=== PATIENT | male | born 1980 | race Caucasian/White ===

== ENCOUNTER 2019-10-12 17:30 | Emergency (ER) | payer SELFPAY ==
--- NOTE | 2019-10-12 19:30 | ER ---
Nurse's Notes [facility] Name: Leno Galindo Age: 38 yrs Sex: Male : 1980 Arrival Date: 10/12/2019 Time: 17:33 Bed 11 Private MD: Diagnosis: Zoster [herpes zoster];Acute upper respiratory infection, unspecified Presentation: 10/12 18:21 Presenting complaint: Patient states: Cough x 1 week, congestion few days. Denies ca1 fever, vomiting, diarrhea. reports nausea. Rash on R lateral chest area, L upper back. Transition of care: patient was not received from another setting of care. Onset of symptoms was October 12, 2019. Risk Assessment: Do you want to hurt yourself or someone else? Patient reports no desire to harm self or others. Initial Sepsis Screen: Does the patient meet any 2 criteria? No. Patient's initial sepsis screen is negative. Does the patient have a suspected source of infection? No. Patient's initial sepsis screen is negative. Care prior to arrival: None. 18:21 Method Of Arrival: Ambulatory ca1 18:21 Acuity: SHANTA 4 ca1 Historical: - Allergies: 18:26 No Known Allergies; ca1 - Home Meds: 18:26 None [Active]; ca1 - PMHx: 18:26 Hypertension; ca1 - PSHx: 18:26 Shoulder Surgery; ca1 - Immunization history:: Adult Immunizations not up to date, Last tetanus immunization: up to date Flu vaccine is not up to date. - Coronavirus screen:: The patient has NOT traveled to [place], [place], or [place] in the past 14 days. The patient has NOT had contact with known/suspected case of Coronavirus?. - Social history:: Smoking status: Patient reports the use of cigarette tobacco products, smokes one-half pack cigarettes per day. - Ebola Screening: : Patient negative for fever greater than or equal to 101.5 degrees Fahrenheit, and additional compatible Ebola Virus Disease symptoms Patient denies exposure to infectious person Patient denies travel to an Ebola-affected area in the 21 days before illness onset No symptoms or risks identified at this time. Assessment: 19:38 General: Appears in no apparent distress. Pain: Complains of pain in back of left arm bb3 Pain currently is 6 out of 10 on a pain scale. Quality of pain is described as aching. Neuro: No deficits noted. Reports Denies. Derm: No deficits noted. Musculoskeletal: No deficits noted. Vital Signs: 18:26 BP 143 / 96; Pulse 86; Resp 17 S; Temp 97.6(TE); Pulse Ox 100% on R/A; Weight 99.79 kg ca1 (R); Height 6 ft. 4 in. (193.04 cm) (R); 19:39 BP 146 / 97; Pulse 86; Resp 18; Temp 97.9; Pulse Ox 99% ; Pain 6/10; bb3 20:14 BP 146 / 97; Pulse 86; Resp 19; Temp 97.9; Pulse Ox 99% ; bb3 18:26 Body Mass Index 26.78 (99.79 kg, 193.04 cm) ca1 ED Course: 17:33 Patient arrived in ED. ag5 18:25 Triage completed. ca1 18:26 Arm band placed on right wrist. ca1 19:17 Andrew Saucedo MD is Attending Physician. tw4 Administered Medications: 20:00 Drug: TORadol 60 mg Route: IM; Site: right deltoid; bb3 20:14 Follow up: BP 146 / 97; Pulse 86 bpm; Resp 19 bpm; Temp 97.9; Pulse Ox 99% bb3 20:05 Drug: Valtrex 1000 mg Route: PO; bb3 Outcome: 19:29 Discharge ordered by . tw4 20:18 Patient left the ED. bb3 Signatures: Andrew Saucedo MD MD tw4 Catherine Hyman, RN RN ca1 Roland Rick ag5 Merlyn Rogers bb3
--- NOTE | 2019-10-12 19:30 | EDPHYS ---
Physician Documentation [facility] Name: Leno Galindo Age: 38 yrs Sex: Male : 1980 Arrival Date: 10/12/2019 Time: 17:33 Bed 11 Private MD: ED Physician Andrew Saucedo HPI: 10/12 19:44 This 38 yrs old Male presents to ER via Ambulatory with complaints of Flu tw4 Symptoms, Rash. 19:44 The patient's rash thought to be caused by an unknown cause. The rash is located on the tw4 posterior aspect of right shoulder. The rash can be described as vesicular. Onset: The symptoms/episode began/occurred 5 day(s) ago. Associated signs and symptoms: Pertinent positives: Pain. Severity of symptoms: At their worst the symptoms were moderate in the emergency department the symptoms are unchanged. The patient has not experienced similar symptoms in the past. Historical: - Allergies: 18:26 No Known Allergies; ca1 - Home Meds: 18:26 None [Active]; ca1 - PMHx: 18:26 Hypertension; ca1 - PSHx: 18:26 Shoulder Surgery; ca1 - Immunization history:: Adult Immunizations not up to date, Last tetanus immunization: up to date Flu vaccine is not up to date. - Coronavirus screen:: The patient has NOT traveled to [place], [place], or [place] in the past 14 days. The patient has NOT had contact with known/suspected case of Coronavirus?. - Social history:: Smoking status: Patient reports the use of cigarette tobacco products, smokes one-half pack cigarettes per day. - Ebola Screening: : Patient negative for fever greater than or equal to 101.5 degrees Fahrenheit, and additional compatible Ebola Virus Disease symptoms Patient denies exposure to infectious person Patient denies travel to an Ebola-affected area in the 21 days before illness onset No symptoms or risks identified at this time. ROS: 19:44 Constitutional: Negative for fever, chills, and weight loss, Eyes: Negative for injury, tw4 pain, redness, and discharge, Cardiovascular: Negative for chest pain, palpitations, and edema, Respiratory: Negative for shortness of breath, cough, wheezing, and pleuritic chest pain, Abdomen/GI: Negative for abdominal pain, nausea, vomiting, diarrhea, and constipation, Back: Negative for injury and pain, MS/Extremity: Negative for injury and deformity, Neuro: Negative for headache, weakness, numbness, tingling, and seizure. 19:44 Skin: Positive for rash, Negative for abrasions, abscesses, avulsion, burn, cellulitis, diaphoresis, discoloration, ecchymosis, erythema, hematoma, jaundice, laceration(s), lesions, pallor, puncture. Exam: 19:44 Constitutional: This is a well developed, well nourished patient who is awake, alert, tw4 and in no acute distress. Head/Face: Normocephalic, atraumatic. 19:44 Chest/axilla: Normal chest wall appearance and motion. Nontender with no deformity. No lesions are appreciated. Cardiovascular: Regular rate and rhythm with a normal S1 and S2. No gallops, murmurs, or rubs. Normal PMI, no JVD. No pulse deficits. Respiratory: Lungs have equal breath sounds bilaterally, clear to auscultation and percussion. No rales, rhonchi or wheezes noted. No increased work of breathing, no retractions or nasal flaring. Abdomen/GI: Soft, non-tender, with normal bowel sounds. No distension or tympany. No guarding or rebound. No evidence of tenderness throughout. Back: No spinal tenderness. No costovertebral tenderness. Full range of motion. 19:44 Skin: Appearance: rash a mild rash is noted, zoster, on the posterior aspect of right shoulder. Vital Signs: 18:26 BP 143 / 96; Pulse 86; Resp 17 S; Temp 97.6(TE); Pulse Ox 100% on R/A; Weight 99.79 kg ca1 (R); Height 6 ft. 4 in. (193.04 cm) (R); 19:39 BP 146 / 97; Pulse 86; Resp 18; Temp 97.9; Pulse Ox 99% ; Pain 6/10; bb3 20:14 BP 146 / 97; Pulse 86; Resp 19; Temp 97.9; Pulse Ox 99% ; bb3 18:26 Body Mass Index 26.78 (99.79 kg, 193.04 cm) ca1 MDM: 19:17 Patient medically screened. tw4 19:46 Differential diagnosis: impetigo, varicella. Data reviewed: vital signs, nurses notes. tw4 Data reviewed: lab test result(s), Flu:. Data interpreted: Pulse oximetry: Interpretation: normal. Counseling: I had a detailed discussion with the patient and/or guardian regarding: the historical points, exam findings, and any diagnostic results supporting the discharge/admit diagnosis. Medication response: Toradol partially relieved the patient's pain. Response to treatment: and as a result, I will discharge patient. Special discussion: I discussed with the patient/guardian in detail that at this point there is no indication for admission to the hospital. It is understood, however, that if the symptoms persist or worsen the patient needs to return immediately for re-evaluation. 10/12 18:28 Order name: Flu ca1 10/12 18:28 Order name: Strep ca1 10/12 19:05 Order name: Throat Culture EDMS Administered Medications: 20:00 Drug: TORadol 60 mg Route: IM; Site: right deltoid; bb3 20:14 Follow up: BP 146 / 97; Pulse 86 bpm; Resp 19 bpm; Temp 97.9; Pulse Ox 99% bb3 20:05 Drug: Valtrex 1000 mg Route: PO; bb3 Disposition: 10/12/19 19:29 Discharged to Home. Impression: Zoster [herpes zoster], Acute upper respiratory infection, unspecified. - Condition is Stable. - Discharge Instructions: Upper Respiratory Infection, Pediatric, Viral Respiratory Infection, Shingles, [id number]. - Prescriptions for Ibuprofen 800 mg Oral Tablet - take 1 tablet by ORAL route every 8 hours As needed take with food; 30 tablet. Tylenol- Codeine #3 300-30 mg Oral Tablet - take 2 tablet by ORAL route every 6 hours As needed; 30 tablet. Valtrex 1 g Oral Tablet - take 1 tablet by ORAL route every 8 hours for 7 days; 21 tablet. Tessalon Perles 100 mg Oral Capsule - take 1 capsule by ORAL route every 8 hours As needed; 15 capsule. - Medication Reconciliation Form, Thank You Letter, Antibiotic Education, Prescription Opioid Use form. - Follow up: Private Physician; When: Upon discharge from the Emergency Department; Reason: Recheck today's complaints, Continuance of care, Re-evaluation by your physician. - Problem is new. - Symptoms have improved. Signatures: Dispatcher [employer] EDMS Andrew Saucedo MD MD tw4 Catherine Hyman RN RN ca1 Merlyn Rogers bb3 Corrections: (The following items were deleted from the chart) 20:18 19:29 10/12/2019 19:29 Discharged to Home. Impression: Zoster [herpes zoster]; Acute bb3 upper respiratory infection, unspecified. Condition is Stable. Forms are Medication Reconciliation Form, Thank You Letter, Antibiotic Education, Prescription Opioid Use. Follow up: Private Physician; When: Upon discharge from the Emergency Department; Reason: Recheck today's complaints, Continuance of care, Re-evaluation by your physician. Problem is new. Symptoms have improved. tw4
[2019-10-12] MEDS ORDERED: VALACYCLOVIR 500 MG TAB ONE (19:56)
[2019-10-12] MEDS ORDERED: KETOROLAC 30 MG/ML INJ ONE (19:56)
[2019-10-12 20:30] VITALS: BP 146/97; TEMP 97.9; O2SAT 99
== END 2019-10-12 20:18 | disposition home or self-care (01) ==
LOC: ER 17:30
DX: B02.9 Zoster without complications (principal); J06.9 Acute upper respiratory infection, unspecified
CPT/HCPCS: 87070; 87081; 87804; 96372; 99283

== ENCOUNTER 2020-02-09 14:35 | Emergency (ER) | payer OTHER, SELFPAY ==
--- OUTSIDE RECORDS SUMMARY | 2020-02-09 16:04 | XMS REPORT | Summary of Care ---
:1980 Author Organization [facility] Address [address] [place] [address] Care Team Providers Name Role Phone Pcp, Patient Does Not Have A Primary Care Provider +[id number] 0-0000 Reason for Referral Radiology Services (STAT) Status Reason Specialty Diagnoses / Referred By Referred To Procedures Contact Contact Closed Diagnostic Diagnoses Right testicular pain Ermelinda Ramsay Radiology Procedures US SCROTUM AND CONTENTS [address] [place] [address] Reason for Visit Radiology Services (STAT) Status Reason Specialty Diagnoses / Referred By Referred To Procedures Contact Contact Closed Diagnostic Diagnoses Right testicular pain Ermelinda Ramsay Radiology Procedures US SCROTUM AND CONTENTS [address] [place] [address] Encounter Details Date Type Department Care Team Description 12/30/2019 Hospital Encounter Critical access hospital Radiolog y Arrived [facility] [address] [facility] [address] [place] [address] [place] [phone] Allergies Not on Filedocumented as of this encounter (statuses as of 12/31/2019) Medications Not on filedocumented as of this encounter (statuses as of 12/31/2019) Active Problems Not on filedocumented as of this encounter (statuses as of 12/31/2019) Social History Tobacco Use Types Packs/Day Years Used Date Never Assessed Sex Assigned at Date Recorded Not on file Job Start Date Occupation Industry Not on file Not on file Not on file Travel History Travel Start Travel End No recent travel history available. documented as of this encounter Last Filed Vital Signs Not on filedocumented in this encounter Plan of Treatment Health Maintenance Due Date Last Done Comments VARICELLA VACCINES (1 of 2 - 1983 2-dose childhood series) DTaP,Tdap,and Td Vaccines (1 - 1993 Tdap) INFLUENZA VACCINE (#1) 2019 PNEUMOCOCCAL 0-64 YEARS COMBINED Aged Out No longer eligible based on SERIES patient's age to complete this topic documented as of this encounter Procedures Procedure Name Priority Date/Time Associated Diagnosis Comme nts US SCROTUM AND STAT 12/30/2019 1:30 PM Right testicular Re sults for this CONTENTS CDT pain procedure are i n the results section. documented in this encounter Results US SCROTUM AND CONTENTS (12/30/2019 1:30 PM CDT) Specimen Narrative Performed At HISTORY: Right testicular pain for one w [place]. PACS/VR/DOSE TECHNIQUE: Entire scrotum is evaluated in multiple maria luisa duncan without and with color Doppler imaging. FINDINGS: Both testes show homogeneous e cho structure. Right testicle is 4.5 x 2.2 x 3.0 cm (15.8 ml ). Left testicle is 4.1 x 2.4 x 3.1 cm in size (16.7 ml ). Small bilateral scrotal hydr ocele and bilateral scrotal varicocele noted, slightly larger on the left side. Va scular flow as well as Doppler tracings appear normal over each testis. 7. 5 x 8.7 mm cyst noted in the head of the right epididymis and several small epididymal cysts noted in the head of the left epididymis , largest is 2.7 mm. Small calcifications are seen in the left test is and there are one or 2 small calcifications in the right testis. CONCLUSIONS: 1. No acute findings and scrotal ultraso und study. 2. Small cysts in the head of the epididymis, larger s ize of 7.5 x 8.7 mm in the right epididymis. 3. Small bilateral testicular microlithiasis without a ny other associated sonographic abnormalities. Procedure Note [facility], Radiant Results Inft User - 2019 1:34 PM CDT HISTORY: Right testicular pain for one week. TECHNIQUE: Entire scrotum is evaluated i n multiple planes without and with color Doppler imaging. FINDINGS: Both testes show homogeneous e cho structure. Right testicle is 4.5 x 2.2 x 3.0 cm (15.8 ml ). Left test icle is 4.1 x 2.4 x 3.1 cm in size (16.7 ml ). Small bilateral scrotal hydr ocele and bilateral scrotal varicocele noted, slightly larger on the left side. Vascular flow as well as Doppler tracings appear normal over e ach testis. 7.5 x 8.7 mm cyst noted in the head of the right epididymis and several small epididymal cysts noted in the head of the left epididymis , largest is 2.7 mm. Small calcifications are seen in the left test is and there are one or 2 small calcifications in the right testis. CONCLUSIONS: 1. No acute findings and scrotal ultraso und study. 2. Small cysts in the head of the epidid ymis, larger size of 7.5 x 8.7 mm in the right epididymis. 3. Small bilateral testicular microlithi asis without any other associated sonographic abnormalities. Performing Organization Address City/State/Zipcode Phone Number PACS/VR/DOSE documented in this encounter Visit Diagnoses Diagnosis Right testicular pain Unspecified disorder of male genital org ans documented in this encounter documented as of this encounter
--- OUTSIDE RECORDS SUMMARY | 2020-02-09 16:04 | XMS REPORT | Summary of Care ---
:1980 Author Organization [facility] - Health Address [address] [place] [address] Care Team Providers Name Role Phone Pcp, Patient Does Not Have A Primary Care Provider +[id number] 0-0000 Encounter Details Date Type Department Care Team Description 12/30/2019 Orders Only [facility] Doctor Unassigned, No [address] [facility] [place] [address] [address] [place] [address] Allergies Not on Filedocumented as of this encounter (statuses as of 12/30/2019) Medications Not on filedocumented as of this encounter (statuses as of 12/30/2019) Active Problems Not on filedocumented as of this encounter (statuses as of 12/30/2019) Social History Tobacco Use Types Packs/Day Years Used Date Never Assessed Sex Assigned at Date Recorded Not on file Job Start Date Occupation Industry Not on file Not on file Not on file Travel History Travel Start Travel End No recent travel history available. documented as of this encounter Last Filed Vital Signs Not on filedocumented in this encounter Plan of Treatment Date Type Specialty Care Team Description 12/30/2019 Hospital Encounter Radiology Radiology Arrived [address] [place] [address] Health Maintenance Due Date Last Done Comments VARICELLA VACCINES (1 of 2 - 1983 2-dose childhood series) DTaP,Tdap,and Td Vaccines ( - 1993 Tdap) INFLUENZA VACCINE (#1) 2019 PNEUMOCOCCAL 0-64 YEARS COMBINED Aged Out No longer eligible based on SERIES patient's age to complete this topic documented as of this encounter Procedures Procedure Name Priority Date/Time Associated Diagnosis Comme nts CONSENT/REFUSAL FOR Routine 12/30/2019 1:04 PM DIAGNOSIS AND TREATMENT CDT ASSIGNMENT OF BENEFITS Routine 12/30/2019 1:04 PM CDT documented in this encounter Results Not on filedocumented in this encounter Insurance Payer Benefit Plan / Group Subscriber ID Effective Dates Phone Address Type BIN STEWARD II [id number] 2019-Present H MO/PPO/POS documented as of this encounter
--- OUTSIDE RECORDS SUMMARY | 2020-02-09 16:04 | XMS REPORT ---
:1980 Author Organization [facility] t Address [address] [place] [address] [address] [place] [address] Care Team Providers Name Role Phone Radiology Attending Clinician Unavailable Doctor Unassigned, Name Attending Clinician Unavailable Problems This patient has no known problems. Allergies, Adverse Reactions, Alerts This patient has no known allergies or adverse reactions. Medications This patient has no known medications. Procedures This patient has no known procedures. Encounters Start End Encounter Admission Attending Care Care Encounter Source Date/Time Date/Time Type Type Clinicians Facility Department ID 2019-12-30 2019-12-30 [facility] Radiology [facility] [id number] 13:04:00 23:59:00 Encounter [place] [id number] [place] [id number] [place] [phone] [id number] 2019-12-30 2019-12-30 Orders Doctor ANA MARÍA [id number] 00:00:00 00:00:00 Only Unassigned, [facility] [id number] [place] [facility] [phone] [id number] Results This patient has no known results.
[2020-02-09 16:48] VITALS: BP 148/88; TEMP 98.9; O2SAT 98
--- NOTE | 2020-02-14 14:29 | ER ---
Nurse's Notes [facility] Name: Leno Galindo Age: 39 yrs Sex: Male : 1980 Arrival Date: 02/09/2020 Time: 14:40 Bed 10 Private MD: Diagnosis: Bronchitis, not specified as acute or chronic-Covid Symptoms Screen + Presentation: 02/08 14:52 Chief complaint: Patient states: sore throat, cough, congestion, temp of 102 for 2 dm5 days. 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 Coronavirus screen: Proceed with normal triage. Patient reports a cough. Patient denies shortness of breath or difficulty breathing. Patient reports a measured and/or subjective temperature greater than 100.4F. Patient denies travel on a cruise ship or to a country the [facility] currently lists as an affected area. Patient denies contact with known and/or suspected case of COVID-19. Ebola Screen: Patient denies travel to an Ebola-affected area in the 21 days before illness onset. Initial Sepsis Screen: Does the patient meet any 2 criteria? HR > 90 bpm. No. Patient's initial sepsis screen is negative. Risk Assessment: Do you want to hurt yourself or someone else? Patient reports no desire to harm self or others. Onset of symptoms was February 08, 2020. 14:52 Method Of Arrival: Ambulatory dm5 14:52 Acuity: SHANTA 4 dm5 Historical: - Allergies: 14:54 No Known Allergies; dm5 - PMHx: 14:54 Hypertension; dm5 - PSHx: 14:54 Shoulder Surgery; dm5 - Immunization history:: Adult Immunizations up to date. - Social history:: Smoking status: Patient reports the use of cigarette tobacco products, smokes one-half pack cigarettes per day, Patient uses alcohol, only on a social basis. Patient/guardian denies using street drugs. Screenin:50 Abuse screen: Denies threats or abuse. Denies injuries from another. Nutritional hb screening: No deficits noted. Tuberculosis screening: No symptoms or risk factors identified. Fall Risk None identified. Assessment: 15:50 General: Appears in no apparent distress. Behavior is calm, cooperative. Pain: Pain hb currently is 3 out of 10 on a pain scale. Neuro: Level of Consciousness is awake, alert, obeys commands. Cardiovascular: Patient's skin is warm and dry. Respiratory: Airway is patent Respiratory effort is even, unlabored. GI: No signs and/or symptoms were reported involving the gastrointestinal system. : No signs and/or symptoms were reported regarding the genitourinary system. EENT: Reports sore throat, cough. Derm: Skin is pink, warm \T\ dry. Musculoskeletal: No signs and/or symptoms reported regarding the musculoskeletal system. Vital Signs: 14:52 BP 148 / 88; Pulse 118; Resp 18; Temp 98.9; Pulse Ox 98% ; Pain 3/10; dm5 ED Course: 14:40 Patient arrived in ED. mr 14:54 Triage completed. dm5 14:54 Arm band placed on. dm5 15:44 [facility] snw 15:44 Reji Durand MD is Attending Physician. snw 16:18 Valencia Sheehan RN is Primary Nurse. ll1 16:38 Patient has correct armband on for positive identification. hb 16:38 No provider procedures requiring assistance completed. Patient did not have IV access hb during this emergency room visit. Administered Medications: No medications were administered Outcome: 16:20 Discharge ordered by . snw 16:38 Discharged to home ambulatory. hb 16:38 Condition: stable 16:38 Discharge instructions given to patient, Instructed on discharge instructions, follow up and referral plans. Demonstrated understanding of instructions, follow-up care, medications, Prescriptions given X 2. 16:39 Patient left the ED. hb Addendum: 02/14/2020 11:01 Addendum: Other attempted to contact pt regarding negative COVID-19 swab results. Left d m5 voice mail. 16:42 Addendum: Other Pt notified of negative COVID-19 swab results. Pt advised to remain in d m5 isolation until fever free for 3 days without medication or at least 10 days from symptom onset, to continue to monitor symptoms and to return to the ED for worsening symptoms. Pt also advised to follow up with PCP and to contact medical records for a copy of COVID-19 swab results. Signatures: Marielos Thomason RN RN dm Rebekah Hunt FNP-C CLOTHING DESIGNER-Cristina Oksana Herrmann Karen Browne RN RN Valencia Sheehan RN RN ll1 Corrections: (The following items were deleted from the chart) 02/08 14:55 14:54 Arm band placed on Patient placed in an exam room, on a stretcher, dm5 dm5
--- NOTE | 2020-02-14 14:30 | EDPHYS ---
Physician Documentation [facility] Name: Leno Galindo Age: 39 yrs Sex: Male : 1980 Arrival Date: 02/09/2020 Time: 14:40 Bed 10 Private MD: ED Physician Reji Durand HPI: 02/08 16:37 This 39 yrs old Male presents to ER via Ambulatory with complaints of Fever, snw Sore Throat. 16:37 The patient reports fever, that was measured at 102.8 degrees Fahrenheit. Onset: The snw symptoms/episode began/occurred suddenly, 3 day(s) ago, and became persistent. Associated signs and symptoms: Pertinent positives: cough, myalgias, sore throat. Severity of symptoms: At their worst the symptoms were moderate in the emergency department the symptoms are unchanged. It is unknown whether or not the patient has had similar symptoms in the past. The patient has not recently seen a physician. Historical: - Allergies: 14:54 No Known Allergies; dm5 - PMHx: 14:54 Hypertension; dm5 - PSHx: 14:54 Shoulder Surgery; dm5 - Immunization history:: Adult Immunizations up to date. - Social history:: Smoking status: Patient reports the use of cigarette tobacco products, smokes one-half pack cigarettes per day, Patient uses alcohol, only on a social basis. Patient/guardian denies using street drugs. ROS: 16:35 Eyes: Negative for injury, pain, redness, and discharge, Neck: Negative for injury, snw pain, and swelling, Cardiovascular: Negative for chest pain, palpitations, and edema, Abdomen/GI: Negative for abdominal pain, nausea, vomiting, diarrhea, and constipation, Back: Negative for injury and pain, : Negative for injury, bleeding, discharge, and swelling, MS/Extremity: Negative for injury and deformity, Skin: Negative for injury, rash, and discoloration, Neuro: Negative for headache, weakness, numbness, tingling, and seizure, Psych: Negative for depression, anxiety, suicide ideation, homicidal ideation, and hallucinations. 16:35 Constitutional: Positive for body aches, fever, malaise. 16:35 ENT: Positive for sore throat. 16:35 Respiratory: Positive for cough, with no reported sputum, Negative for dyspnea on exertion, sputum production. Exam: 16:35 Head/Face: Normocephalic, atraumatic. Eyes: Pupils equal round and reactive to light, snw extra-ocular motions intact. Lids and lashes normal. Conjunctiva and sclera are non-icteric and not injected. Cornea within normal limits. Periorbital areas with no swelling, redness, or edema. ENT: Nares patent. No nasal discharge, no septal abnormalities noted. Tympanic membranes are normal and external auditory canals are clear. Oropharynx with no redness, swelling, or masses, exudates, or evidence of obstruction, uvula midline. Mucous membranes moist. Neck: Trachea midline, no thyromegaly or masses palpated, and no cervical lymphadenopathy. Supple, full range of motion without nuchal rigidity, or vertebral point tenderness. No Meningismus. Chest/axilla: Normal chest wall appearance and motion. Nontender with no deformity. No lesions are appreciated. Cardiovascular: Tachycardic rate and rhythm with a normal S1 and S2. No gallops, murmurs, or rubs. Normal PMI, no JVD. No pulse deficits. Respiratory: Lungs have equal breath sounds bilaterally, clear to auscultation and percussion. No rales, rhonchi or wheezes noted. No increased work of breathing, no retractions or nasal flaring. Abdomen/GI: Soft, non-tender, with normal bowel sounds. No distension or tympany. No guarding or rebound. No evidence of tenderness throughout. Back: No spinal tenderness. No costovertebral tenderness. Full range of motion. Skin: Warm, dry with normal turgor. Normal color with no rashes, no lesions, and no evidence of cellulitis. MS/ Extremity: Pulses equal, no cyanosis. Neurovascular intact. Full, normal range of motion. Neuro: Awake and alert, GCS 15, oriented to person, place, time, and situation. Cranial nerves II-XII grossly intact. Motor strength 5/5 in all extremities. Sensory grossly intact. Cerebellar exam normal. Normal gait. Psych: Awake, alert, with orientation to person, place and time. Behavior, mood, and affect are within normal limits. 16:35 Constitutional: The patient appears alert, awake. Vital Signs: 14:52 BP 148 / 88; Pulse 118; Resp 18; Temp 98.9; Pulse Ox 98% ; Pain 3/10; dm5 MDM: 15:56 Patient medically screened. snw 16:23 Data reviewed: vital signs, nurses notes. Data interpreted: Pulse oximetry: on room air snw is 98 %. Interpretation: normal. Counseling: I had a detailed discussion with the patient and/or guardian regarding: the historical points, exam findings, and any diagnostic results supporting the discharge/admit diagnosis, the presence of at least one elevated blood pressure reading (>120/80) during this emergency department visit, lab results, the need for outpatient follow up, to return to the emergency department if symptoms worsen or persist or if there are any questions or concerns that arise at home. Response to treatment: There is no appreciated change of the patient's symptoms at this time, the patient's symptoms have mildly improved after treatment. Special discussion: I have referred the patient to see his PCP for further evaluation of high blood pressure. Based on the history and exam findings, there is no indication for further emergent testing or inpatient evaluation. I discussed with the patient/guardian the need to see the primary care provider for further evaluation of the symptoms. 02/08 14:56 Order name: Flu 5 02/08 14:56 Order name: Strep 5 02/08 15:27 Order name: Group A Streptococcus Rapid Sc; Complete Time: 15:52 EDMS 02/08 15:49 Order name: Influenza Screen (A ; Complete Time: 15:52 EDMS 02/08 15:55 Order name: COVID-19: ED patient with URI s/s kdr 02/08 15:55 Order name: Droplet/Contact Precautions; Complete Time: 16:19 snw Administered Medications: No medications were administered Disposition: 17:19 Co-signature as Attending Physician, Reji Durand MD I agree with the assessment and kdr plan of care. Disposition: 02/09/20 16:20 Discharged to Home. Impression: Bronchitis, not specified as acute or chronic - Covid Symptoms Screen +. - Condition is Stable. - Discharge Instructions: Acute Bronchitis, Adult, Fever, Adult, Cough, Adult. - Prescriptions for Zyrtec 10 mg Oral Tablet - take 1 tablet by ORAL route once daily As needed; 20 tablet. Pepcid 20 mg Oral Tablet - take 1 tablet by ORAL route once daily; 20 tablet. - Work release form, Medication Reconciliation Form, Thank You Letter, Antibiotic Education, Prescription Opioid Use form. - Follow up: Emergency Department; When: As needed; Reason: Trouble breathing, Worsening of condition. Follow up: Private Physician; When: 1 week; Reason: Recheck today's complaints, Continuance of care, Re-evaluation by your physician. - Notes: Please avoid Motrin until cleared for CoVid 19, results will be called to you. Please quarantine x 2 weeks. Signatures: Dispatcher [employer] EDMarielos Beckham, RN RN dm5 Reji Durand MD MD [facility] Rebekah Hunt, GROCERY SUPERVISOR-C GROCERY SUPERVISOR-Csnw Karen Browne RN RN hb Corrections: (The following items were deleted from the chart) 16:39 16:20 02/09/2020 16:20 Discharged to Home. Impression: Bronchitis, not specified as hb acute or chronic - Covid Symptoms Screen +. Condition is Stable. Forms are Medication Reconciliation Form, Thank You Letter, Antibiotic Education, Prescription Opioid Use. Follow up: Emergency Department; When: As needed; Reason: Trouble breathing, Worsening of condition. Follow up: Private Physician; When: 1 week; Reason: Recheck today's complaints, Continuance of care, Re-evaluation by your physician. snw
== END 2020-02-09 16:39 | disposition home or self-care (01) ==
LOC: ER 14:35
DX: J40 Bronchitis, not specified as acute or chronic (principal); Z20.828 Contact with and (suspected) exposure to other viral communicable diseases; I10 Essential (primary) hypertension; F17.210 Nicotine dependence, cigarettes, uncomplicated
CPT/HCPCS: 87070; 87081; 87804; 99282

== ENCOUNTER 2022-05-19 15:23 | Emergency (ER) | payer OTHER ==
--- OUTSIDE RECORDS SUMMARY | 2022-05-19 15:27 | XMS REPORT | Continuity of Care Document ---
:1980 Author Organization [facility] t Address [address] [place] [address] Care Team Providers Name Role Phone PCP, PATIENT DOES NOT HAVE A Primary Care Physician UnavailJOVANA Dinero Attending Clinician Unavailable Lab, Adc Fam Pob I Attending Clinician Unavailable Vashti Kruse Attending Clinician Doctor Unassigned, [place] Attending Clinician Unavailable RADIOLOGY Attending Clinician Unavailable Radiology Attending Clinician Unavailable JOVANA HOOKER Admitting Clinician Unavailable KIRK CASTILLO Admitting Clinician Unavailable Payers Payer Name Policy Type Policy Number Effective Date Expiration Date Aman STEWARD II [id number] 2019 00:00:00 Problems This patient has no known problems. Allergies, Adverse Reactions, Alerts Allergy Allergy Status Severity Reaction(s) Onset Inactive Treating Comm ents Source Name Type Date Date Clinician NO KNOWN Drug Active Univers ALLERGIE Class ity of S [facility] Social History Social Habit Start Date Stop Date Quantity Comments Source [facility] to SARS-CoV-2 [facility] Sm[facility] Status Start Date Stop Date Source Unknown if ever [facility] Medications Ordered Filled Start Stop Current Ordering Indication Dosage Frequency Signature Comments Components Source Medication Medication Date Date Medication? Clinician (SIG) Name Name lisinopril Yes TK 1 T PO Un heide 10 mg 7-01 QD ity of tablet 00:00: [address] Procedures Procedure Date / Time Performed Performing Clinician [facility] e US SCROTUM AND 2019-12-30 18:30:12 Requisition, Paper Universit y of [facility] CONSENT/REFUSAL FOR 2019-12-30 18:04:31 Doctor Unassigned, No [facility] DIAGNOSIS AND Name [facility] TREATMENT ASSIGNMENT OF BENEFITS 2019-12-30 18:04:18 Doctor Unassigned, No [facility] Encounters Start End Encounter Admission Attending Care Care Encounter Source Date/Time Date/Time Type Type Clinicians Facility Department ID 2022-02-28 Outpatient R [facility] N[facility]OL[facility] [id number] Univers 14:47:14 JOVANA ity [facility] 2022-03-06 2022-03-06 Outpatient R [facility] [id number] Univers 08:00:00 08:00:00 [id number] ity [facility] 2022-03-06 2022-03-06 Outpatient R MORRO [facility] [id number] Univers 08:00:00 08:00:00 JOVANA ity [facility] 2020-04-21 2020-04-21 Laboratory Lab, Adc Fam Pob I [facility] [id number] Univers 15:44:54 16:04:54 Only Vashti Medley [facility] [id number] ity of [place] [id number] Javi as [place] [id number] [address] Office [address] 2020-04-21 2020-04-21 Outpatient R [facility] [id number] Univers 15:40:00 15:40:00 ity of [facility] 2020-04-21 2020-04-21 Outpatient R [facility] [id number] Univers 15:40:00 15:40:00 ity of [facility] 2020-04-21 2020-04-21 Letter Doctor GOTTI [id number] Univers 00:00:00 00:00:00 (Out) Unassigned, [facility] [id number] ity of [place] [facility] [id number] Javi as [id number] [address] 2019-12-31 2019-12-31 Outpatient R RADIOLOGY [facility] [id number] Univers 00:00:00 00:00:00 [id number] ity of [facility] 2019-12-30 2019-12-30 Outpatient R RADIOLOGY [facility] [id number] Univers 13:04:39 23:59:00 ity of [facility] 2019-12-30 2019-12-30 [facility] Radiology [facility] [id number] 13:04:00 23:59:00 Encounter [place] [id number] [place] [id number] [place] [id number] 2019-12-30 2019-12-30 [facility] Radiology [facility] [id number] Univers 13:04:00 23:59:00 Encounter [place] [id number] ity of [place] [id number] [facility] [id number] [facility] [address] 2019-12-30 2019-12-30 Orders Doctor ANA MARÍA [id number] Univers 00:00:00 00:00:00 Only Unassigned, [facility]I [id number] ity of [place] [facility] [id number] Javi [id number] [facility] [address] 2019-12-30 2019-12-30 Orders Doctor ANA MARÍA [id number] 00:00:00 00:00:00 Only Unassigned, [facility] [id number] [place]2.7.2.686 [id number] 009 Results Test Test Test Results Result Source Description Time Comments Comments US SCROTUM AND HISTORY: Right testicular University of CONTENTS 16 pain for one week. [facility] 18:33:48 TECHNIQUE: Entire scrotum Branch is evaluated in multiple planes without and withcolor Doppler imaging. FINDINGS: Both testes show homogeneous echo structure. Right testicle is4.5 x 2.2 x 3.0 cm (15.8 ml ). Left testicle is 4.1 x 2.4 x 3.1 cm in size(16.7 ml ). Small bilateral scrotal hydrocele and bilateral scrotalvaricocele noted, slightly larger on the left side. Vascular flow as wellas Doppler tracings appear normal over each testis. 7.5 x 8.7 mm cyst notedin the head of the right epididymis and several small epididymal cystsnoted in the head of the left epididymis, largest is 2.7 mm. Smallcalcifications are seen in the left testis and there are one or 2 smallcalcifications in the right testis. CONCLUSIONS:1. No acute findings and scrotal ultrasound study.2. Small cysts in the head of the epididymis, larger size of 7.5 x 8.7 mmin the right epididymis.3. Small bilateral testicular microlithiasis without any other associatedsonographic abnormalities. [facility], Radiant Results Inft User - 12/30/2019 1:34 PM CDTHISTORY: Right testicular pain for one week.TECHNIQUE: Entire scrotum is evaluated in multiple planes without and withcolor Doppler imaging.FINDINGS: Both testes show homogeneous echo structure. Right testicle is4.5 x 2.2 x 3.0 cm (15.8 ml ). Left testicle is 4.1 x 2.4 x 3.1 cm in size(16.7 ml ). Small bilateral scrotal hydrocele and bilateral scrotalvaricocele noted, slightly larger on the left side. Vascular flow as wellas Doppler tracings appear normal over each testis. 7.5 x 8.7 mm cyst notedin the head of the right epididymis and several small epididymal cystsnoted in the head of the left epididymis, largest is 2.7 mm. Smallcalcifications are seen in the left testis and there are one or 2 smallcalcifications in the right testis.CONCLUSIONS:1. No acute findings and scrotal ultrasound study.2. Small cysts in the head of the epididymis, larger size of 7.5 x 8.7 mmin the right epididymis.3. Small bilateral testicular microlithiasis without any other associatedsonographic abnormalities.
--- NOTE | 2022-05-19 17:03 | RAD REPORT ---
EXAM DESCRIPTION: RAD - Ankle Right 3 View - 05/19/2022 4:57 pm CLINICAL HISTORY: Right ankle pain status post fall FINDINGS: No fracture or dislocation is seen.
--- NOTE | 2022-05-19 17:08 | EDPHYS ---
Physician Documentation [facility] Name: Leno Galindo Age: 41 yrs Sex: Male : 1980 Arrival Date: 05/19/2022 Time: 15:24 Bed 12 Private MD: ED Physician Reji Durand HPI: 05/19 16:00 This 41 yrs old Male presents to ER via Wheelchair with complaints of Ankle Injury. cp 16:00 The patient presents with an injury, pain, that is acute. The complaints affect the cp right ankle. Onset: The symptoms/episode began/occurred last night. Context: Reports he was outside urinating, when he believes he heard a coyote close by. Took off running. Right foot landed tree stump, injuring ankle. Associated signs and symptoms: The patient has no apparent associated signs or symptoms. Modifying factors: the symptoms are aggravated by weight bearing, movement. Historical: - Allergies: 15:47 No Known Allergies; iw - Home Meds: 15:47 None [Active]; iw - PMHx: 15:47 Hypertension; iw - PSHx: 15:47 rotator cuff; iw - Immunization history:: Client reports having NOT received the Covid vaccine. - Social history:: Smoking status: Patient reports the use of cigarette tobacco products. ROS: 16:05 MS/extremity: Positive for pain, tenderness, of the anterior aspect of right ankle, cp Negative for decreased range of motion, deformity, paresthesias. 16:05 Constitutional: Negative for body aches, chills, fever. cp 16:05 Neck: Negative for pain with movement, pain at rest, stiffness. 16:05 Back: Negative for pain at rest, pain with movement. 16:05 Neuro: Negative for headache, numbness, tingling, weakness. 16:05 All other systems are negative. Exam: 16:10 Constitutional: The patient appears in no acute distress, alert, awake, non-toxic, well cp developed, well nourished. 16:10 Head/Face: Normocephalic, atraumatic. cp 16:10 Neck: ROM/movement: is normal, is supple, without pain, no range of motions limitations. 16:10 Chest/axilla: Inspection: normal. 16:10 Cardiovascular: Rate: normal. 16:10 Respiratory: the patient does not display signs of respiratory distress, Respirations: normal, no use of accessory muscles, no retractions. 16:10 Back: pain, is absent, ROM is normal. 16:10 Musculoskeletal/extremity: Extremities: grossly normal except: noted in the anterior aspect of right ankle: pain, tenderness, There is no evidence of decreased ROM, deformity, ROM: limited active range of motion due to pain, in the right ankle, Pulses: noted to be 2+ in the right dorsalis pedis artery, Achilles tendon palpated and intact, no pain to palpation noted base of right fifth metatarsal and/or proximal fibula. Vital Signs: 15:46 BP 132 / 86; Pulse 99; Resp 16; Pulse Ox 100% on R/A; Weight 95.25 kg; Height 6 ft. 4 iw in. (193.04 cm); Pain 7/10; 15:46 Body Mass Index 25.56 (95.25 kg, 193.04 cm) iw MDM: 15:49 Patient medically screened. cp 17:08 Data reviewed: vital signs, nurses notes, radiologic studies, plain films. cp 17:08 Test interpretation: by ED physician or midlevel provider: plain radiologic studies. cp Counseling: I had a detailed discussion with the patient and/or guardian regarding: the historical points, exam findings, and any diagnostic results supporting the discharge/admit diagnosis, radiology results, the need for outpatient follow up, a orthopedic surgeon, to return to the emergency department if symptoms worsen or persist or if there are any questions or concerns that arise at home. Response to treatment: the patient's symptoms have markedly improved after treatment, and as a result, I will discharge patient. 05/19 15:58 Order name: XRAY Ankle RIGHT 3 view; Complete Time: 17:05 cp 05/19 17:05 Interpretation: Report reviewed. cp 05/19 17:07 Order name: Splint - Ankle: Aircast; Complete Time: 17:29 cp 05/19 17:07 Order name: Crutches; Complete Time: 17:29 cp Administered Medications: : Drug: Ibuprofen 800 mg Route: PO; iw 18:00 Follow up: Response: No adverse reaction iw Disposition: 05/20 15:42 Co-signature as Attending Physician, Reji Durand MD I agree with the assessment and kdr plan of care. Disposition Summary: 05/19/22 17:08 Discharge Ordered Location: Home cp Problem: new cp Symptoms: have improved cp Condition: Stable cp Diagnosis - Sprain of ankle - right cp Followup: cp - With: William Hernandez MD - When: 5 - 6 days - Reason: Recheck today's complaints Discharge Instructions: - Discharge Summary Sheet cp - Ankle Sprain cp - RICE Therapy for Routine Care of Injuries cp Forms: - Medication Reconciliation Form cp - Thank You Letter cp - Antibiotic Education cp - Prescription Opioid Use cp - Work release form eb Prescriptions: - Diclofenac Sodium 75 mg Oral Tablet Sustained Release - take 1 tablet by ORAL route 2 times per day; 30 tablet; Refills: 0, Product cp Selection Permitted Signatures: Dispatcher [employer] Reji Zhu MD MD kdr Williams, Irene, RN RN iw Lionel Alvarado PA PA cp
--- NOTE | 2022-05-19 17:08 | ER ---
Nurse's Notes [facility] Name: Leno Galindo Age: 41 yrs Sex: Male : 1980 Arrival Date: 05/19/2022 Time: 15:24 Bed 12 Private MD: Diagnosis: Sprain of ankle-right Presentation: 05/19 15:46 Chief complaint: Patient states: got scared by a coyote and took off running, hit a iw tree stump with right foot, now it hurts to put pressure on it. Coronavirus screen: At this time, the client does not indicate any symptoms associated with coronavirus-19. Ebola Screen: Patient negative for fever greater than or equal to 101.5 degrees Fahrenheit, and additional compatible Ebola Virus Disease symptoms Patient denies exposure to infectious person. Patient denies travel to an Ebola-affected area in the 21 days before illness onset. No symptoms or risks identified at this time. Initial Sepsis Screen: Does the patient meet any 2 criteria? No. Patient's initial sepsis screen is negative. Does the patient have a suspected source of infection? No. Patient's initial sepsis screen is negative. Risk Assessment: Do you want to hurt yourself or someone else? Patient reports no desire to harm self or others. Onset of symptoms was May 18, 2022. 15:46 Method Of Arrival: Wheelchair iw 15:46 Acuity: SHANTA 4 iw Historical: - Allergies: 15:47 No Known Allergies; iw - Home Meds: 15:47 None [Active]; iw - PMHx: 15:47 Hypertension; iw - PSHx: 15:47 rotator cuff; iw - Immunization history:: Client reports having NOT received the Covid vaccine. - Social history:: Smoking status: Patient reports the use of cigarette tobacco products. Assessment: 16:50 General: Appears in no apparent distress. Pain: Complains of pain in anterior aspect of iw right ankle and dorsum of right foot. Musculoskeletal: Range of motion: intact in all extremities, Reports pain in right foot. Vital Signs: 15:46 BP 132 / 86; Pulse 99; Resp 16; Pulse Ox 100% on R/A; Weight 95.25 kg; Height 6 ft. 4 iw in. (193.04 cm); Pain 7/10; 15:46 Body Mass Index 25.56 (95.25 kg, 193.04 cm) iw ED Course: 15:24 Patient arrived in ED. am2 15:34 Lionel Alvarado PA is PHCP. cp 15:34 Reji Durand MD is Attending Physician. cp 15:47 Triage completed. iw 15:48 Arm band placed on. iw 16:33 Aga Sandoval RN is Primary Nurse. iw 16:59 XRAY Ankle RIGHT 3 view In Process Unspecified. EDMS 17:07 William Hernandez MD is Referral Physician. cp Administered Medications: 17:22 Drug: Ibuprofen 800 mg Route: PO; iw 18:00 Follow up: Response: No adverse reaction iw Outcome: 17:08 Discharge ordered by . cp 17:32 Patient left the ED. iw Signatures: Dispatcher [employer] EDMS Aga Sandoval RN RN iw Lionel Alvarado PA PA cp Lita Santos am2
[2022-05-19] MEDS ORDERED: IBUPROFEN 400 MG TAB ONE (17:16)
[2022-05-19 17:46] VITALS: BP 132/86; O2SAT 100
== END 2022-05-19 17:32 | disposition home or self-care (01) ==
LOC: ER 15:23
DX: S93.401A Sprain of unspecified ligament of right ankle, initial encounter (principal); F17.210 Nicotine dependence, cigarettes, uncomplicated; I10 Essential (primary) hypertension
CPT/HCPCS: 99283